=== PATIENT | female | born 1935 | race Caucasian/White ===

== ENCOUNTER 2016-06-29 11:32 | Inpatient (IN) | payer OTHER, MEDICAID ==
[~2016-06-29] VITALS: Ht 147.3 cm; Wt 69.6 kg
[2016-06-29 12:13] LABS: PLATELET COUNT 438 x10^3mcL (130-400); RED CELL DISTRIBUTION WIDTH 14.8 % (11.5-14.5)
[2016-06-29 12:31] LABS: CARBON DIOXIDE 24.3 mmol/L (21-32); CHLORIDE SERUM 99 mmol/L (98-107); GLUCOSE SERUM 137 mg/dL (74-106); SODIUM SERUM 138 mmol/L (136-145)
[2016-06-29 12:33] LABS: ALBUMIN 2.6 g/dL (3.4-5.0); ALKALINE PHOSPHATASE 72 U/L (46-116); ALT/SGPT 13 U/L (14-59); AST/SGOT 12 U/L (15-37); BILIRUBIN TOTAL 0.37 mg/dL (0.20-1.00); CALCIUM 9.2 mg/dL (8.5-10.1); CREATININE SERUM 2.9 mg/dL (0.6-1.0); TOTAL PROTEIN, SERUM 7.7 g/dL (6.4-8.2)
[2016-06-29 12:54] LABS: BAND NEUTROPHIL 3 % (0-10); BASOPHIL 0 % (0-2); MONOCYTE 4 % (0-7)
[2016-06-29 12:55] LABS: SEGMENTED NEUTROPHILS 82 % (37-75)
[2016-06-29 12:57] LABS: rbc morphology (normal/abnorm) ABNORMAL (NORMAL)
[2016-06-29] MEDS ORDERED: GLIPIZIDE5 M2 PO (14:16)
[2016-06-29] MEDS ORDERED: BENAZEPRIL HYDR20 M1 PO (14:16)
[2016-06-29] MEDS ORDERED: CARTIA XT300 MG PO (14:16)
[2016-06-29] MEDS ORDERED: FUROSEMIDE20 MG PO (14:17)
[2016-06-29 15:22] LABS: microscopic required? YES; urine erythrocyte 3+ (NEGATIVE)
[2016-06-29 15:25] LABS: MAGNESIUM 1.7 mg/dL (1.8-2.4)
[2016-06-29 15:33] LABS: T3 TOTAL 0.85 ng/mL
[2016-06-29 15:34] LABS: CHOLESTEROL/HDL RATIO 3.2
[2016-06-29 15:36] LABS: FREE T4 1.37 ng/dL (0.76-1.46); FREE THYROXINE INDEX 3.7 ug/dL (1.4-4.5); T4(THYROXINE) 9.3 ug/dL (4.7-13.3)
[2016-06-29 15:57] VITALS: BP 140/46
[2016-06-29 18:06] VITALS: BP 124/43
[2016-06-29 20:15] VITALS: BP 120/50
[2016-06-29 21:30] VITALS: BP 110/54
[2016-06-29 22:07] VITALS: BP 124/57
[2016-06-30 06:29] VITALS: BP 126/46
[2016-06-30 07:01] LABS: PLATELET COUNT 343 x10^3mcL (130-400)
[2016-06-30 07:07] LABS: BASOPHIL % 0 % (0-2); RED CELL DISTRIBUTION WIDTH 15.3 % (11.5-14.5)
[2016-06-30 07:11] LABS: CALCIUM 8.4 mg/dL (8.5-10.1); CARBON DIOXIDE 26.3 mmol/L (21-32); CREATININE SERUM 2.3 mg/dL (0.6-1.0); GLUCOSE SERUM 196 mg/dL (74-106); MAGNESIUM 1.6 mg/dL (1.8-2.4)
[2016-06-30 08:08] LABS: CHLORIDE SERUM 107 mmol/L (98-107); POTASSIUM SERUM 3.7 mmol/L (3.5-5.1); SODIUM SERUM 142 mmol/L (136-145)
[2016-06-30 09:29] VITALS: BP 132/50
[2016-06-30 14:05] VITALS: BP 105/60
[2016-06-30 18:31] VITALS: BP 125/43
[2016-06-30 22:05] VITALS: BP 125/53
[2016-07-01 06:02] VITALS: BP 110/47
[2016-07-01 07:26] LABS: BASOPHIL % 0.3 % (0-2); PLATELET COUNT 313 x10^3mcL (130-400)
[2016-07-01 07:35] LABS: RED CELL DISTRIBUTION WIDTH 15.4 % (11.5-14.5)
[2016-07-01 07:38] LABS: CALCIUM 8.2 mg/dL (8.5-10.1); CARBON DIOXIDE 26.1 mmol/L (21-32); CHLORIDE SERUM 110 mmol/L (98-107); GLUCOSE SERUM 171 mg/dL (74-106); MAGNESIUM 2.1 mg/dL (1.8-2.4); POTASSIUM SERUM 3.3 mmol/L (3.5-5.1); SODIUM SERUM 145 mmol/L (136-145)
[2016-07-01 09:24] VITALS: BP 128/50
[2016-07-01 18:07] VITALS: BP 122/47
[2016-07-01 20:56] VITALS: BP 114/70
[2016-07-02 06:03] VITALS: BP 108/51
[2016-07-02 06:26] LABS: CALCIUM 8.4 mg/dL (8.5-10.1); CARBON DIOXIDE 28.9 mmol/L (21-32); CHLORIDE SERUM 112 mmol/L (98-107); CREATININE SERUM 1.8 mg/dL (0.6-1.0); GLUCOSE SERUM 94 mg/dL (74-106); MAGNESIUM 1.8 mg/dL (1.8-2.4); PHOSPHOROUS 4.3 mg/dL (2.5-4.9); POTASSIUM SERUM 3.9 mmol/L (3.5-5.1); SODIUM SERUM 145 mmol/L (136-145)
[2016-07-02 06:35] LABS: BASOPHIL % 0.2 % (0-2); PLATELET COUNT 299 x10^3mcL (130-400)
[2016-07-02 08:59] VITALS: BP 108/46
[2016-07-02] MEDS ORDERED: LAC PO (10:02)
[2016-07-02] MEDS ORDERED: ECO81 PO (10:02)
[2016-07-02] MEDS ORDERED: LIPI10 PO (10:02)
[2016-07-02] MEDS ORDERED: LEVAQUIN750 MG PO (10:03)
[2016-07-02] MEDS ORDERED: FLA500 PO (10:03)
[2016-07-02] MEDS ORDERED: NORCO1 TA2 PO (10:04)
[2016-07-02] MEDS ORDERED: COLACE100 MG PO (10:05)
[2016-07-02 12:29] VITALS: BP 111/47
[2016-07-02 16:22] VITALS: BP 98/53
[2016-07-02] MEDS ORDERED: MEROPENEM1 GM IV (17:31)
[2016-07-02 18:24] VITALS: BP 98/53
== END 2016-07-02 22:05 | DRG 391 ==
LOC: ED 11:32 → DU 13:48 → MU 13:48 → DU 15:29 → MU 06-30 18:57
PROVIDERS: Emergency Medicine; Family Medicine; ADMIT Family Medicine
DX: K57.32 Diverticulitis of large intestine without perforation or abscess without bleeding (principal); N17.0 Acute kidney failure with tubular necrosis; E43 Unspecified severe protein-calorie malnutrition; N39.0 Urinary tract infection, site not specified; K29.80 Duodenitis without bleeding; R91.1 Solitary pulmonary nodule; B96.20 Unspecified Escherichia coli [E. coli] as the cause of diseases classified elsewhere; J44.9 Chronic obstructive pulmonary disease, unspecified; I49.3 Ventricular premature depolarization; I10 Essential (primary) hypertension; E11.51 Type 2 diabetes mellitus with diabetic peripheral angiopathy without gangrene; E11.65 Type 2 diabetes mellitus with hyperglycemia; E87.6 Hypokalemia; I25.10 Atherosclerotic heart disease of native coronary artery without angina pectoris; D27.0 Benign neoplasm of right ovary; M48.07 Spinal stenosis, lumbosacral region; N20.0 Calculus of kidney; D64.9 Anemia, unspecified; Z68.32 Body mass index [BMI] 32.0-32.9, adult; Z79.84 Long term (current) use of oral hypoglycemic drugs; Z87.891 Personal history of nicotine dependence; Z99.81 Dependence on supplemental oxygen; Z16.24 Resistance to multiple antibiotics
CPT/HCPCS: 80307; 82962; 83880; 84439; C9113; J0696; J1885; J1940; J2185; J3010; J3475; J3480; J3490; J7030; J7040; J7042; J7050; Q0092

== ENCOUNTER 2016-07-25 14:47 | Emergency (ER) | payer OTHER, MEDICAID ==
[~2016-07-25] VITALS: Ht 149.9 cm; Wt 65.8 kg
[~2016-07-25 14:47] MED LIST: BENAZEPRIL HYDR20 M1 PO; CARTIA XT300 MG PO; COLACE100 MG PO; ECO81 PO; FLA500 PO; FUROSEMIDE20 MG PO; GLIPIZIDE5 M2 PO; LAC PO; LEVAQUIN750 MG PO; LIPI10 PO; MEROPENEM1 GM IV; NORCO1 TA2 PO
[2016-07-25 16:01] LABS: CALCIUM 8.7 mg/dL (8.5-10.1); CARBON DIOXIDE 31.4 mmol/L (21-32); CHLORIDE SERUM 100 mmol/L (98-107); CREATININE SERUM 1.9 mg/dL (0.6-1.0); GLUCOSE SERUM 220 mg/dL (74-106); SODIUM SERUM 135 mmol/L (136-145)
[2016-07-25 16:06] LABS: ALKALINE PHOSPHATASE 64 U/L (46-116); ALT/SGPT 12 U/L (14-59); AST/SGOT 12 U/L (15-37); BILIRUBIN TOTAL 0.3 mg/dL (0.20-1.00); TOTAL PROTEIN, SERUM 6.7 g/dL (6.4-8.2)
[2016-07-25 16:07] LABS: ALBUMIN 2.5 g/dL (3.4-5.0)
[2016-07-25 16:24] LABS: PLATELET COUNT 348 x10^3mcL (130-400)
[2016-07-25 16:26] LABS: RED CELL DISTRIBUTION WIDTH 17.9 % (11.5-14.5)
[2016-07-25 16:32] LABS: BAND NEUTROPHIL 4 % (0-10); MONOCYTE 10 % (0-7); SEGMENTED NEUTROPHILS 81 % (37-75)
[2016-07-25 16:33] LABS: rbc morphology (normal/abnorm) NORMAL (NORMAL)
[2016-07-25 17:09] LABS: UA SPECIFIC GRAVITY 1.025 (1.005-1.035); microscopic required? YES; urine erythrocyte 3+ (NEGATIVE)
[2016-07-25 17:40] VITALS: BP 93/60
[2016-07-26] MEDS ORDERED: MASON NATURAL1000 IU PO (04:59)
[2016-07-26] MEDS ORDERED: FLORANEX1 CT2 PO (04:59)
== END 2016-07-25 18:00 | disposition home or self-care (01) ==
LOC: ED 14:47
PROVIDERS: Emergency Medicine
DX: R53.1 Weakness (principal); N39.0 Urinary tract infection, site not specified; E11.9 Type 2 diabetes mellitus without complications; I10 Essential (primary) hypertension; I50.9 Heart failure, unspecified; Z79.818 Long term (current) use of other agents affecting estrogen receptors and estrogen levels
CPT/HCPCS: 83880; J0696; J7030

== ENCOUNTER 2016-07-26 03:09 | Inpatient (IN) | payer OTHER, MEDICAID ==
[~2016-07-26] VITALS: Ht 149.9 cm; Wt 157.9 kg
[2016-07-26] VITALS (10 sets, daily range): BP systolic 90–125; BP diastolic 44–65
[2016-07-26 04:03] LABS: PLATELET COUNT 295 x10^3mcL (130-400)
[2016-07-26 04:04] LABS: UA SPECIFIC GRAVITY 1.015 (1.005-1.035); microscopic required? YES; urine erythrocyte 2+ (NEGATIVE)
[2016-07-26 04:08] LABS: RED CELL DISTRIBUTION WIDTH 17.7 % (11.5-14.5)
[2016-07-26 04:14] LABS: CALCIUM 8.6 mg/dL (8.5-10.1); CARBON DIOXIDE 27.4 mmol/L (21-32); CHLORIDE SERUM 101 mmol/L (98-107); CREATININE SERUM 2.4 mg/dL (0.6-1.0); GLUCOSE SERUM 149 mg/dL (74-106); SODIUM SERUM 136 mmol/L (136-145)
[2016-07-26 04:18] LABS: ALKALINE PHOSPHATASE 77 U/L (46-116); ALT/SGPT 10 U/L (14-59); AST/SGOT 11 U/L (15-37); BILIRUBIN TOTAL 0.4 mg/dL (0.20-1.00); LIPASE 57 IU/L (73-393); TOTAL PROTEIN, SERUM 6.5 g/dL (6.4-8.2)
[2016-07-26 04:24] LABS: ALBUMIN 2.4 g/dL (3.4-5.0)
[2016-07-26 04:27] LABS: BAND NEUTROPHIL 5 % (0-10); METAMYELOCTE 2 % (0-2); MONOCYTE 2 % (0-7); SEGMENTED NEUTROPHILS 90 % (37-75); rbc morphology (normal/abnorm) ABNORMAL (NORMAL)
[2016-07-26 04:30] LABS: PLATELET MORPHOLOGY FEW LARGE PLATELETS; ovalocyte/elliptocyte 1+
[2016-07-26] MEDS ORDERED: MASON NATURAL1000 IU PO (04:59)
[2016-07-26] MEDS ORDERED: FLORANEX1 CT2 PO (04:59)
[2016-07-26 06:25] LABS: PLATELET COUNT 252 x10^3mcL (130-400)
[2016-07-26 06:34] LABS: T3 TOTAL 1.15 ng/mL
[2016-07-26 07:18] LABS: CHOLESTEROL/HDL RATIO 1.7
[2016-07-26 07:18] LABS: RED CELL DISTRIBUTION WIDTH 17.9 % (11.5-14.5)
[2016-07-26 07:21] LABS: FREE T4 1.59 ng/dL (0.76-1.46); FREE THYROXINE INDEX 3.3 ug/dL (1.4-4.5); T4(THYROXINE) 9.4 ug/dL (4.7-13.3)
[2016-07-26 10:37] LABS: BAND NEUTROPHIL 28 % (0-10); BASOPHIL 0 % (0-2); MONOCYTE 4 % (0-7); SEGMENTED NEUTROPHILS 66 % (37-75)
[2016-07-26 10:46] LABS: rbc morphology (normal/abnorm) ABNORMAL (NORMAL)
[2016-07-26 10:48] LABS: PLATELET MORPHOLOGY PLATELETS NORMAL; ovalocyte/elliptocyte 1+
[2016-07-26 17:53] LABS: PLATELET COUNT 235 x10^3mcL (130-400)
[2016-07-26 18:11] LABS: RED CELL DISTRIBUTION WIDTH 17.8 % (11.5-14.5)
[2016-07-26 18:34] LABS: BAND NEUTROPHIL 13 % (0-10); BASOPHIL 0 % (0-2); MONOCYTE 2 % (0-7); SEGMENTED NEUTROPHILS 82 % (37-75)
[2016-07-26 18:37] LABS: CALCIUM 7.7 mg/dL (8.5-10.1); CARBON DIOXIDE 27.3 mmol/L (21-32); CHLORIDE SERUM 105 mmol/L (98-107); CREATININE SERUM 2.2 mg/dL (0.6-1.0); GLUCOSE SERUM 265 mg/dL (74-106); POTASSIUM SERUM 5.1 mmol/L (3.5-5.1); SODIUM SERUM 139 mmol/L (136-145); rbc morphology (normal/abnorm) ABNORMAL (NORMAL)
[2016-07-26 18:40] LABS: PLATELET MORPHOLOGY PLATELETS NORMAL
[2016-07-27 00:10] VITALS: BP 91/43
[2016-07-27 03:30] VITALS: BP 119/53
[2016-07-27 05:23] LABS: BASOPHIL % 0.1 % (0-2); PLATELET COUNT 229 x10^3mcL (130-400)
[2016-07-27 05:28] LABS: RED CELL DISTRIBUTION WIDTH 18.2 % (11.5-14.5)
[2016-07-27 05:37] LABS: CALCIUM 7.6 mg/dL (8.5-10.1); CARBON DIOXIDE 24.9 mmol/L (21-32); CHLORIDE SERUM 109 mmol/L (98-107); GLUCOSE SERUM 136 mg/dL (74-106); MAGNESIUM 1.9 mg/dL (1.8-2.4); SODIUM SERUM 140 mmol/L (136-145)
[2016-07-27 07:45] VITALS: BP 124/62
[2016-07-27 10:06] LABS: PLATELET COUNT 241 x10^3mcL (130-400)
[2016-07-27 10:07] LABS: RED CELL DISTRIBUTION WIDTH 18.3 % (11.5-14.5)
[2016-07-27 11:27] LABS: BAND NEUTROPHIL 11 % (0-10); BASOPHIL 0 % (0-2); MONOCYTE 4 % (0-7); PLATELET MORPHOLOGY PLATELETS NORMAL; SEGMENTED NEUTROPHILS 81 % (37-75); rbc morphology (normal/abnorm) ABNORMAL (NORMAL)
[2016-07-27 11:30] VITALS: BP 129/64
[2016-07-27 11:56] VITALS: Ht 149.9 cm; Wt 157.9 kg
[2016-07-27 15:00] VITALS: BP 127/70
[2016-07-27 22:50] VITALS: BP 127/70
[2016-07-28 05:24] VITALS: BP 111/65
[2016-07-28 07:40] LABS: PLATELET COUNT 199 x10^3mcL (130-400)
[2016-07-28 07:42] LABS: RED CELL DISTRIBUTION WIDTH 17.7 % (11.5-14.5)
[2016-07-28 07:55] LABS: CALCIUM 7.9 mg/dL (8.5-10.1); CARBON DIOXIDE 23.4 mmol/L (21-32); CHLORIDE SERUM 109 mmol/L (98-107); CREATININE SERUM 1.8 mg/dL (0.6-1.0); GLUCOSE SERUM 153 mg/dL (74-106); MAGNESIUM 1.8 mg/dL (1.8-2.4); PHOSPHOROUS 4.2 mg/dL (2.5-4.9); SODIUM SERUM 139 mmol/L (136-145)
[2016-07-28 08:53] LABS: BAND NEUTROPHIL 9 % (0-10); BASOPHIL 0 % (0-2); MONOCYTE 4 % (0-7); PLATELET MORPHOLOGY PLATELETS NORMAL; SEGMENTED NEUTROPHILS 82 % (37-75)
[2016-07-28 08:54] LABS: rbc morphology (normal/abnorm) ABNORMAL (NORMAL)
[2016-07-28 20:00] VITALS: BP 111/60
[2016-07-28 20:55] VITALS: BP 120/59
[2016-07-28 21:53] VITALS: BP 111/60
[2016-07-29] VITALS (8 sets, daily range): BP systolic 112–123; BP diastolic 53–66
[2016-07-29 07:34] LABS: PLATELET COUNT 175 x10^3mcL (130-400)
[2016-07-29 07:39] LABS: CARBON DIOXIDE 25.5 mmol/L (21-32); CHLORIDE SERUM 111 mmol/L (98-107); CREATININE SERUM 1.6 mg/dL (0.6-1.0); GLUCOSE SERUM 162 mg/dL (74-106); MAGNESIUM 1.8 mg/dL (1.8-2.4); PHOSPHOROUS 3.4 mg/dL (2.5-4.9); POTASSIUM SERUM 4.5 mmol/L (3.5-5.1); SODIUM SERUM 144 mmol/L (136-145)
[2016-07-29 07:40] LABS: BASOPHIL % 0 % (0-2); RED CELL DISTRIBUTION WIDTH 18.3 % (11.5-14.5)
[2016-07-30] VITALS (7 sets, daily range): BP systolic 101–126; BP diastolic 43–72
[2016-07-30 07:42] LABS: BASOPHIL % 0.1 % (0-2); PLATELET COUNT 165 x10^3mcL (130-400)
[2016-07-30 07:44] LABS: CALCIUM 7.4 mg/dL (8.5-10.1); CARBON DIOXIDE 22.1 mmol/L (21-32); CHLORIDE SERUM 110 mmol/L (98-107); CREATININE SERUM 1.3 mg/dL (0.6-1.0); GLUCOSE SERUM 166 mg/dL (74-106); SODIUM SERUM 142 mmol/L (136-145)
[2016-07-30 07:46] LABS: RED CELL DISTRIBUTION WIDTH 18.5 % (11.5-14.5)
[2016-07-30] MEDS ORDERED: VANCOCIN125 MG PO (18:25)
[2016-07-30] MEDS ORDERED: FLO4 PO (18:27)
[2016-07-30] MEDS ORDERED: LAC PO (18:28)
[2016-07-31 05:25] VITALS: BP 120/57
[2016-07-31] MEDS ORDERED: CAR60 PO (06:19)
[2016-07-31] MEDS ORDERED: MEROPENEM-500 MG/50 IV (06:25)
[2016-07-31 06:26] LABS: PLATELET COUNT 186 x10^3mcL (130-400)
[2016-07-31] MEDS ORDERED: FLA500I IV (06:26)
[2016-07-31] MEDS ORDERED: BG FS (06:28)
[2016-07-31] MEDS ORDERED: HUMULIN R100 U/1 M1 SC (06:29)
[2016-07-31 06:47] LABS: CALCIUM 7.7 mg/dL (8.5-10.1); CARBON DIOXIDE 23.1 mmol/L (21-32); CHLORIDE SERUM 113 mmol/L (98-107); CREATININE SERUM 1.3 mg/dL (0.6-1.0); GLUCOSE SERUM 153 mg/dL (74-106); MAGNESIUM 1.5 mg/dL (1.8-2.4); PHOSPHOROUS 2.8 mg/dL (2.5-4.9); SODIUM SERUM 144 mmol/L (136-145)
[2016-07-31 07:21] LABS: BASOPHIL % 0 % (0-2); RED CELL DISTRIBUTION WIDTH 18.9 % (11.5-14.5)
[2016-07-31] MEDS ORDERED: COUMADIN2.5 MG PO ×2 (08:14→08:42)
[2016-07-31 09:33] VITALS: BP 120/57
[2016-07-31 09:34] VITALS: BP 115/65
[2016-07-31] MEDS ORDERED: LASIX20 MG PO (09:43)
== END 2016-07-31 11:50 | DRG 871 ==
LOC: ED 03:09 → DU 04:46 → IC 04:46 → DU 07-27 18:19
PROVIDERS: Emergency Medicine; Family Medicine; ADMIT Family Medicine
PROC: 0T9030Z Drainage of Right Kidney with Drainage Device, Percutaneous Approach (ICD-10-PCS; principal; 2016-07-28)
DX: A41.9 Sepsis, unspecified organism (principal); R65.21 Severe sepsis with septic shock; E43 Unspecified severe protein-calorie malnutrition; N17.0 Acute kidney failure with tubular necrosis; G93.41 Metabolic encephalopathy; J96.01 Acute respiratory failure with hypoxia; N39.0 Urinary tract infection, site not specified; I69.354 Hemiplegia and hemiparesis following cerebral infarction affecting left non-dominant side; D68.69 Other thrombophilia; I42.9 Cardiomyopathy, unspecified; N13.2 Hydronephrosis with renal and ureteral calculous obstruction; A04.7 Enterocolitis due to Clostridium difficile; E11.51 Type 2 diabetes mellitus with diabetic peripheral angiopathy without gangrene; E11.65 Type 2 diabetes mellitus with hyperglycemia; K80.20 Calculus of gallbladder without cholecystitis without obstruction; R31.9 Hematuria, unspecified; M62.50 Muscle wasting and atrophy, not elsewhere classified, unspecified site; F32.9 Major depressive disorder, single episode, unspecified; I50.9 Heart failure, unspecified; I12.9 Hypertensive chronic kidney disease with stage 1 through stage 4 chronic kidney disease, or unspecified chronic kidney disease; N18.9 Chronic kidney disease, unspecified; E11.22 Type 2 diabetes mellitus with diabetic chronic kidney disease; J44.9 Chronic obstructive pulmonary disease, unspecified; D64.9 Anemia, unspecified; I48.0 Paroxysmal atrial fibrillation; Z99.81 Dependence on supplemental oxygen; Z87.891 Personal history of nicotine dependence; Z68.30 Body mass index [BMI] 30.0-30.9, adult; Z79.84 Long term (current) use of oral hypoglycemic drugs; Z79.01 Long term (current) use of anticoagulants
CPT/HCPCS: 36600; 82962; 83880; 84439; 94150; 97110-GP; C1729; C1884; J0696; J1815; J2001; J2185; J2250; J2270; J2543; J2930; J3010; J3490; J7030; J7040; J7613; J7644; Q0092; Q9966; Q9967